=== PATIENT | female | born 1985 | race Caucasian/White ===

== ENCOUNTER 2017-01-19 11:01 | Outpatient (CLI) | payer OTHER | END 2017-01-19 23:59 | DX: Z00.00 Encounter for general adult medical examination without abnormal findings (principal); Z98.84 Bariatric surgery status ==

== ENCOUNTER 2017-04-16 13:24 | Outpatient (CLI) | payer OTHER ==
[2017-04-16 19:28] LABS: HCT - HEMATOCRIT 41.4 % (37.0-47.0); HGB - HEMOGLOBIN 13.6 g/dL (12.0-16.0); MEAN CORPUSCULAR HEMOGLOBIN 28.6 pg (27.0-31.0); MEAN CORPUSCULAR VOLUME 86.9 fL (81.0-99.0); MEAN PLATELET VOLUME 10.2 fL (7.9-10.8); RED CELL DISTRIBUTION WIDTH 14.9 % (12.0-15.0); WHITE BLOOD COUNT 7.6 x10^3/uL (4.8-10.8)
[2017-04-16 19:50] LABS: RED BLOOD COUNT 4.76 10^6/uL (4.20-5.40)
== END 2017-04-16 23:59 | disposition home or self-care (01) ==
LOC: LAB.WCP 13:24
PROVIDERS: ATTEND Dentist Oral and Maxillofacial Surgery
DX: D50.9 Iron deficiency anemia, unspecified (principal)
CPT/HCPCS: 36415

== ENCOUNTER 2019-10-05 10:27 | Emergency (ER) | payer OTHER ==
[2019-10-05] MEDS ORDERED: SODIUM CHLORIDE 0.9% 1,000 ML IV ONE (10:58)
[2019-10-05] MEDS ORDERED: METOCLOPRAMIDE 10 MG/2 ML VIAL IVP STA (10:58)
[2019-10-05] MEDS ORDERED: diphenhydrAMINE INJ 50 MG/ML VIAL IVP STA (10:59)
--- NOTE | 2019-10-05 11:01 | ED Physician Documentation ---
PD HPI HEADACHE - Stated complaint Stated Complaint: VOMITING/WEAKNESS - Chief complaint Chief Complaint: Neuro - History obtained from History obtained from: Patient - History of Present Illness Timing - onset: How many days ago (3) Timing - onset during: Rest Timing - duration: Days (3) Timing - details: Gradual onset Pain level max: 6 Severity Comments: moderate Worst headache ever?: No: Worst headache ever? Location: Front, Right Quality: Aching, Tightness. No: Thunderclap, Throbbing, Stabbing, Like head is exploding Associated symptoms: Nausea, Vomiting. No: Fever, Stiff neck, Weakness, Numbness, Syncope, Seizure, Eye pain, Vision changes Improved by: Dark room Worsened by: Light Contributing factors: No: Anticoagulated, Possible carbon monoxide, Hypertension, Recent illness, Trauma Similar symptoms before: Has not had sx before Recently seen: Not recently seen - Treatment prior to arrival Treatment prior to arrival: none - Additional information Additional information: Pt ran out of her seroquel 4 days ago and thinks that is contributing to her symptoms Review of Systems Ten Systems: 10 systems reviewed and negative Constitutional: denies: Fever Eyes: reports: Photophobia. denies: Loss of vision, Decreased vision Ears: reports: Reviewed and negative Nose: reports: Reviewed and negative Throat: reports: Reviewed and negative Cardiac: reports: Reviewed and negative Respiratory: reports: Reviewed and negative GI: reports: Abdominal Pain, Nausea, Vomiting : reports: Reviewed and negative Skin: reports: Reviewed and negative Neurologic: reports: Headache. denies: Generalized weakness, Focal weakness, Numbness, Difficulty speaking, Near syncope, Syncope, Seizure, Altered mental status, Head injury, LOC Psychiatric: reports: Anxiety Immunocompromised: reports: Reviewed and negative PD PAST MEDICAL HISTORY - Past Medical History Cardiovascular: None Respiratory: None GI: None : None HEENT: None Psych: Depression Musculoskeletal: None Derm: None - Past Surgical History General: Gastric surgery HEENT: Tonsil/Adenoidectomy - Present Medications Home Medications: Ambulatory Orders Medication Instructions Recorded Confirmed Bupropion HCl [Wellbutrin Xl] 1 tab ORAL DAILY 01/28/17 01/28/17 Lamotrigine 1 tab ORAL DAILY 01/28/17 01/28/17 Quetiapine Fumarate [Seroquel] 3 tab ORAL QPM 01/28/17 01/28/17 Zolpidem [Ambien] 1 tab ORAL DAILY PRN 01/28/17 01/28/17 Ondansetron Odt [Zofran Odt] 4 mg TL Q6H PRN #10 tablet 10/05/19 - Allergies Allergies/Adverse Reactions: Allergies Allergy/AdvReac Type Severity Reaction Status Date / Time No Known Drug Allergies Allergy Verified 10/05/19 10:40 - Social History Smoking Status: Never smoker PD ED PE NORMAL - Vitals Vital signs reviewed: Yes - General General: Alert and oriented X 3, No acute distress - HEENT HEENT: Atraumatic, PERRL, EOMI, Moist mucous membranes, Pharynx benign - Neck Neck: Supple, no meningeal sign (full painless ROM ), No JVD - Cardiac Cardiac: RRR, No murmur, No gallop, No rub - Respiratory Respiratory: No respiratory distress, Clear bilaterally - Abdomen Abdomen: Soft, Non tender, Non distended - Female Female : Deferred - Rectal Rectal: Deferred - Derm Derm: Normal color, Warm and dry, No rash - Extremities Extremities: No deformity, No tenderness to palpate, Normal ROM s pain, No edema, No calf tenderness / cord - Neuro Neuro: Alert and oriented X 3, No motor deficit, No sensory deficit Eye Opening: Spontaneous Motor: Obeys Commands Verbal: Oriented GCS Score: 15 - Psych Psych: Other (anxious, tearful) Results - Vitals Vitals: Vital Signs - 24 hr 10/05/19 10/05/19 10/05/19 10:37 11:29 11:58 Temperature 36.2 C L Heart Rate 102 H 82 81 Respiratory 18 15 18 Rate Blood Pressure 136/52 H 114/52 L 102/59 L O2 Saturation 100 100 100 Oxygen O2 Source Room air - Labs Labs: Laboratory Tests 10/05/19 10/05/19 11:20 11:20 WBC 10.3 RBC 5.13 Hgb 14.8 Hct 45.9 MCV 89.5 MCH 28.8 MCHC 32.2 RDW 12.7 Plt Count 297 MPV 11.4 H Neut # (Auto) 7.2 H Lymph # (Auto) 2.3 [place] # (Auto) 0.6 Eos # (Auto) 0.1 Baso # (Auto) 0.1 Absolute Nucleated RBC 0.00 Nucleated RBC % 0.0 Sodium 138 Potassium 3.7 Chloride 103 Carbon Dioxide 27 Anion Gap 8.0 BUN 6 Creatinine 0.8 Estimated GFR (MDRD) 81 L Glucose 98 Calcium 9.2 Total Bilirubin 0.6 AST 13 ALT 11 Alkaline Phosphatase 46 Total Protein 7.4 Albumin 4.6 Globulin 2.8 Albumin/Globulin Ratio 1.6 Lipase 25 PD MEDICAL DECISION MAKING - ED course Complexity details: reviewed results, re-evaluated patient, considered differential, d/w patient ED course: ddx - migraine headache, tension headache, medication withdrawal, anxiety, electrolyte abnormality, dehydration, ICH/ SAH, flu 34 y/o F with headache, nausea, vomiting since stopping her seroquel a few days ago - has a script for refill but hasn't been able to get to the pharmacy. Admittedly very stressed about her mom requiring detox and hasn't been caring for herself. She reports poor PO intake, vomiting, nausea, her headache is moderate, of gradual onset and similar to prior headaches. Her examination is normal, no neuro deficits, no nuchal rigidity. No visual symptoms, normal eye exam. She does appear anxious and tearful. I doubt SAH/ICH. This is likely due to anxiety and medication iwthdrawal. She was given a nalgesics for her RUEDA and nausea - reglan and benadryl and has complete relief of symptoms. She is stable for discharge. Return precautions given if worsening or new concerning symptoms. Departure - Departure Disposition: 01 Home, Self Care Clinical Impression: Headache Qualifiers: Headache type: unspecified Headache chronicity pattern: acute headache Intractability: not intractable Qualified Code(s): R51 - Headache Condition: Stable Record reviewed to determine appropriate education?: Yes Instructions: Headache Pain Follow-Up: Annel Hernandez PA-C [Primary Care Provider] - Within 1 week Prescriptions: Ondansetron Odt [Zofran Odt] 4 mg TL Q6H PRN #10 tablet PRN Reason: Nausea / Vomiting Comments: Your labs today were normal including your electrolytes, kidney function and blood counts. Resume your seroquel. You can take tylenol and ibuprofen as needed for headache and the prescribed ondansetron in case of vomiting. Return to the ED if worsening or new concerning symptoms develop Discharge Date/Time: 10/05/19 12:29
[2019-10-05 11:58] VITALS: BP 102/59
[2019-10-05 12:00] LABS: BASOPHILS # (AUTO) 0.1 10^3/uL (0.0-0.1); BASOPHILS % (AUTO) 0.7 %; EOSINOPHILS # (AUTO) 0.1 10^3/uL (0.0-0.7); EOSINOPHILS % (AUTO) 1.1 %; HGB - HEMOGLOBIN 14.8 g/dL (12.0-16.0); LYMPHOCYTES # (AUTO) 2.3 10^3/uL (1.5-3.5); LYMPHOCYTES % (AUTO) 22.3 %; MEAN CORPUSCULAR HEMOGLOBIN 28.8 pg (27.0-31.0); MEAN CORPUSCULAR HGB CONC 32.2 g/dL (32.0-36.0); MEAN CORPUSCULAR VOLUME 89.5 fL (81.0-99.0); MEAN PLATELET VOLUME 11.4 fL (7.9-10.8); MONOCYTES # (AUTO) 0.6 10^3/uL (0.0-1.0); MONOCYTES % (AUTO) 5.4 %; NEUTROPHILS # (AUTO) 7.2 10^3/uL (1.5-6.6); NEUTROPHILS % (AUTO) 70.2 %; PLT - PLATELET COUNT 297 10^3/uL (130-450); RED BLOOD COUNT 5.13 10^6/uL (4.20-5.40); RED CELL DISTRIBUTION WIDTH 12.7 % (12.0-15.0); WHITE BLOOD COUNT 10.3 x10^3/uL (4.8-10.8)
[2019-10-05 12:14] LABS: ALBUMIN 4.6 g/dL (3.2-5.5); ALBUMIN/GLOBULIN RATIO 1.6 (1.0-2.2); BILIRUBIN,TOTAL 0.6 mg/dL (0.2-1.0); CALCIUM 9.2 mg/dL (8.5-10.3); CREATININE 0.8 mg/dL (0.4-1.0); TOTAL PROTEIN 7.4 g/dL (6.7-8.2)
== END 2019-10-05 12:29 | disposition home or self-care (01) ==
LOC: ED 10:27
DX: R51 Headache (principal); R11.2 Nausea with vomiting, unspecified; F41.9 Anxiety disorder, unspecified
CPT/HCPCS: 36415; 80053; 83690; 85025; 96374; 96375; 99283; 99284; J1200; J2765

== ENCOUNTER 2020-11-13 13:05 | Emergency (ER) | payer OTHER ==
[2020-11-13] MEDS ORDERED: SODIUM CHLORIDE 0.9% 1,000 ML IV STA (13:41)
--- NOTE | 2020-11-13 13:53 | ED Physician Documentation ---
History of Present Illness - Stated complaint Stated Complaint: WEAK,DIZZY - Chief complaint Chief Complaint: General - History obtained from History obtained from: Patient - History of Present Illness Timing: How many days ago (3) - Additonal information Additional information: 35-year-old female with a history of iron deficient anemia has a 3 day history of loss of energy, dizziness on standing, headache, orthostatic palpatations and exertional dyspnea. She has had similar symptoms previously with Iron deficient anemia requiring transfusion. She works in the police department and has been at home for the past several days inside. She believes she drinks extra fluids at work and she does not think she has taken in as much fluid as usual. Review of Systems Constitutional: denies: Fever Eyes: denies: Decreased vision Ears: denies: Ear pain Nose: denies: Rhinorrhea / runny nose, Congestion Throat: denies: Sore throat Cardiac: reports: Palpitations. denies: Chest pain / pressure Respiratory: denies: Dyspnea, Cough GI: denies: Abdominal Pain, Nausea, Vomiting, Constipation, Diarrhea : denies: Dysuria, Frequency Skin: denies: Rash Neurologic: reports: Generalized weakness, Headache, Other (dizziness). denies: Focal weakness, Numbness, Head injury, LOC PD PAST MEDICAL HISTORY - Past Medical History Past Medical History: Yes Cardiovascular: None Respiratory: None GI: None : None HEENT: None Psych: Depression Musculoskeletal: None Derm: None - Past Surgical History General: Gastric surgery HEENT: Tonsil/Adenoidectomy - Present Medications Home Medications: Ambulatory Orders Medication Instructions Recorded Confirmed Bupropion HCl [Wellbutrin Xl] 1 tab ORAL DAILY 01/28/17 01/28/17 Lamotrigine 1 tab ORAL DAILY 01/28/17 01/28/17 Quetiapine Fumarate [Seroquel] 3 tab ORAL QPM 01/28/17 01/28/17 Zolpidem [Ambien] 1 tab ORAL DAILY PRN 01/28/17 01/28/17 Ondansetron Odt [Zofran Odt] 4 mg TL Q6H PRN #10 tablet 10/05/19 - Allergies Allergies/Adverse Reactions: Allergies Allergy/AdvReac Type Severity Reaction Status Date / Time No Known Drug Allergies Allergy Verified 11/13/20 13:13 - Social History Does the pt smoke?: No Smoking Status: Never smoker Does the pt drink ETOH?: Yes Does the pt have substance abuse?: No - Immunizations Immunizations are current?: Yes - POLST Patient has POLST: No PD ED PE NORMAL - Vitals Vital signs reviewed: Yes (normal) - General General: Alert and oriented X 3, No acute distress, Well developed/nourished - HEENT HEENT: Atraumatic, PERRL, EOMI - Neck Neck: Supple, no meningeal sign, No bony TTP - Cardiac Cardiac: RRR, No murmur - Respiratory Respiratory: No respiratory distress, Clear bilaterally - Abdomen Abdomen: Normal bowel sounds, Soft, Non tender, Non distended, No organomegaly - Back Back: No CVA TTP, No spinal TTP - Derm Derm: Normal color, Warm and dry, No rash - Extremities Extremities: No deformity, No edema - Neuro Neuro: Alert and oriented X 3, internet designer 2-12 intact, No motor deficit, No sensory deficit, Normal speech Eye Opening: Spontaneous Motor: Obeys Commands Verbal: Oriented GCS Score: 15 - Psych Psych: Normal mood, Normal affect Results - Vitals Vitals: Vital Signs - 24 hr 11/13/20 11/13/20 13:13 15:57 Temperature 36.1 C L 36.8 C Heart Rate 66 56 L Respiratory 18 18 Rate Blood Pressure 90/71 106/59 L O2 Saturation 100 100 Oxygen O2 Source Room air - Labs Labs: Laboratory Tests 11/13/20 11/13/20 11/13/20 13:50 13:50 14:22 WBC 8.7 RBC 4.90 Hgb 14.4 Hct 43.9 MCV 89.6 MCH 29.4 MCHC 32.8 RDW 12.5 Plt Count 258 MPV 11.6 H Neut # (Auto) 5.0 Lymph # (Auto) 2.7 [place] # (Auto) 0.7 Eos # (Auto) 0.2 Baso # (Auto) 0.1 Absolute Nucleated RBC 0.00 Nucleated RBC % 0.0 Sodium 136 Potassium 3.9 Chloride 105 Carbon Dioxide 24 Anion Gap 7.0 BUN 10 Creatinine 0.9 Estimated GFR (MDRD) 70 L Glucose 75 Calcium 9.3 Total Bilirubin 0.4 AST 12 ALT 11 Alkaline Phosphatase 48 Total Protein 6.7 Albumin 4.2 Globulin 2.5 Albumin/Globulin Ratio 1.7 Lipase 28 Urine Color YELLOW Urine Clarity CLEAR Urine pH 6.0 Ur Specific [place] 1.025 Urine Protein NEGATIVE Urine Glucose (UA) NEGATIVE Urine Ketones TRACE Urine Occult Blood NEGATIVE Urine Nitrite NEGATIVE Urine Bilirubin NEGATIVE Urine Urobilinogen 0.2 (NORMAL) Ur Leukocyte Esterase NEGATIVE Ur Microscopic Review NOT INDICATED Urine Culture Comments NOT INDICATED Urine HCG, Qual NEGATIVE Procedures - IVC sono (time) 13 Bedside IVC sono: IVC measures (cm) (0.94), IVC collapsed c insp (cm) (complete), Dehydration (est 1-2 liter deficit) PD MEDICAL DECISION MAKING - ED course Complexity details: reviewed results, re-evaluated patient, considered differential, d/w patient ED course: 35-year-old female with fatigue and dizziness is dehydrated on interrogation the inferior vena cava and she is administered intravenous saline with improvement. Departure - Departure Disposition: 01 Home, Self Care Clinical Impression: Dehydration Condition: Stable Instructions: ED Dehydration Follow-Up: Annel Hernandez PA-C [Primary Care Provider] - Discharge Date/Time: 11/13/20 15:59
[2020-11-13 14:02] LABS: BASOPHILS # (AUTO) 0.1 10^3/uL (0.0-0.1); EOSINOPHILS # (AUTO) 0.2 10^3/uL (0.0-0.7); EOSINOPHILS % (AUTO) 1.8 %; HGB - HEMOGLOBIN 14.4 g/dL (12.0-16.0); LYMPHOCYTES # (AUTO) 2.7 10^3/uL (1.5-3.5); MEAN CORPUSCULAR HEMOGLOBIN 29.4 pg (27.0-31.0); MEAN CORPUSCULAR HGB CONC 32.8 g/dL (32.0-36.0); MEAN CORPUSCULAR VOLUME 89.6 fL (81.0-99.0); MEAN PLATELET VOLUME 11.6 fL (7.9-10.8); MONOCYTES # (AUTO) 0.7 10^3/uL (0.0-1.0); PLT - PLATELET COUNT 258 10^3/uL (130-450); RED CELL DISTRIBUTION WIDTH 12.5 % (12.0-15.0); WHITE BLOOD COUNT 8.7 x10^3/uL (4.8-10.8)
[2020-11-13 14:16] LABS: ALBUMIN 4.2 g/dL (3.2-5.5); ALBUMIN/GLOBULIN RATIO 1.7 (1.0-2.2); BILIRUBIN,TOTAL 0.4 mg/dL (0.2-1.0); CALCIUM 9.3 mg/dL (8.5-10.3); CREATININE 0.9 mg/dL (0.4-1.0); TOTAL PROTEIN 6.7 g/dL (6.7-8.2)
[2020-11-13 14:26] LABS: BILIRUBIN,URINE NEGATIVE (NEGATIVE); GLUCOSE, URINE (UA) NEGATIVE (NEGATIVE); KETONES,URINE (UA) TRACE mg/dL (NEGATIVE); LEUKOCYTE ESTERASE, URINE NEGATIVE (NEGATIVE); NITRITE,URINE NEGATIVE (NEGATIVE); OCCULT BLOOD,URINE NEGATIVE (NEGATIVE); PROTEIN,URINE NEGATIVE (NEGATIVE); UROBILINOGEN,URINE 0.2 (NORMAL) E.U./dL (NORMAL)
[2020-11-13 14:27] LABS: CLARITY,URINE CLEAR (CLEAR)
[2020-11-13 14:28] LABS: HCG UR QUAL NEGATIVE
[2020-11-13 15:57] VITALS: BP 106/59
== END 2020-11-13 15:59 | disposition home or self-care (01) ==
LOC: ED 13:05
DX: E86.0 Dehydration (principal)
CPT/HCPCS: 36415; 80053; 81001; 81003; 81025; 83690; 85025; 87086; 96360; 96361; 99283

== ENCOUNTER 2021-05-25 15:58 | Emergency (ER) | payer OTHER ==
[2021-05-25 16:09] VITALS: BP 120/74
[2021-05-25 16:40] LABS: BILIRUBIN,URINE NEGATIVE (NEGATIVE); GLUCOSE, URINE (UA) NEGATIVE (NEGATIVE); KETONES,URINE (UA) NEGATIVE (NEGATIVE); LEUKOCYTE ESTERASE, URINE TRACE (NEGATIVE); NITRITE,URINE NEGATIVE (NEGATIVE); OCCULT BLOOD,URINE TRACE-INTA (NEGATIVE); PH,URINE 5.5 PH (5.0-7.5); PROTEIN,URINE NEGATIVE (NEGATIVE); UROBILINOGEN,URINE 0.2 (NORMAL) E.U./dL (NORMAL)
[2021-05-25 16:42] LABS: CLARITY,URINE CLEAR (CLEAR); HCG UR QUAL NEGATIVE
[2021-05-25 16:51] LABS: SQUAMOUS EPITHELIAL CELL,UR FEW Squamous (<= Few); WBC CLUMPS,URINE PRESENT; WBC,URINE >25 /HPF (0-5)
[2021-05-25 16:52] LABS: BACTERIA,URINE Few /HPF (None Seen)
--- NOTE | 2021-05-25 17:11 | ED Physician Documentation ---
History of Present Illness - Stated complaint Stated Complaint: FEMALE - Chief complaint Chief Complaint: UTI - History obtained from History obtained from: Patient - Additonal information Additional information: 35-year-old woman presents with suprapubic abdominal pain radiating to the bilateral back, constant, gradual in onset, worse with urination, associated with increased frequency, worsening today. Patient has history of frequent UTI. Past medical history of depression and anxiety.denies fever, nausea Review of Systems Constitutional: denies: Fever, Chills, Myalgias GI: reports: Abdominal Pain. denies: Nausea, Vomiting : reports: Dysuria, Frequency. denies: Hematuria Musculoskeletal: reports: Back pain PD PAST MEDICAL HISTORY - Past Medical History Cardiovascular: None Respiratory: None GI: None : None HEENT: None Psych: Depression Musculoskeletal: None Derm: None - Past Surgical History General: Gastric surgery HEENT: Tonsil/Adenoidectomy - Present Medications Home Medications: Ambulatory Orders Medication Instructions Recorded Confirmed Bupropion HCl [Wellbutrin Xl] 1 tab ORAL DAILY 01/28/17 01/28/17 Lamotrigine 1 tab ORAL DAILY 01/28/17 01/28/17 Quetiapine Fumarate [Seroquel] 3 tab ORAL QPM 01/28/17 01/28/17 Zolpidem [Ambien] 1 tab ORAL DAILY PRN 01/28/17 01/28/17 Ondansetron Odt [Zofran Odt] 4 mg TL Q6H PRN #10 tablet 10/05/19 cephALEXin [Keflex] 500 mg PO BID #28 tab 05/25/21 - Allergies Allergies/Adverse Reactions: Allergies Allergy/AdvReac Type Severity Reaction Status Date / Time No Known Drug Allergies Allergy Verified 05/25/21 16:09 - Social History Does the pt smoke?: No Smoking Status: Never smoker Does the pt drink ETOH?: Yes Does the pt have substance abuse?: No - Immunizations Immunizations are current?: Yes - POLST Patient has POLST: No PD ED PE NORMAL - Vitals Vital signs reviewed: Yes - General General: Alert and oriented X 3, No acute distress, Well developed/nourished - HEENT HEENT: Atraumatic, PERRL, EOMI - Neck Neck: Supple, no meningeal sign - Cardiac Cardiac: RRR - Respiratory Respiratory: No respiratory distress, Clear bilaterally - Abdomen Abdomen: Non tender, Non distended, Other (Discomfort to suprapubic palpation) - Back Back: No CVA TTP, Other (Bilateral CVA discomfort with palpation) - Derm Derm: Normal color - Extremities Extremities: No deformity - Neuro Neuro: Alert and oriented X 3 - Psych Psych: Normal mood, Normal affect Results - Vitals Vitals: Vital Signs - 24 hr 05/25/21 16:06 Temperature 36.7 C Heart Rate 90 Respiratory 16 Rate Blood Pressure 120/74 O2 Saturation 99 Oxygen O2 Source Room air - Labs Labs: Laboratory Tests 05/25/21 14:10 Urine Color YELLOW Urine Clarity CLEAR Urine pH 5.5 Ur Specific [place] >=1.030 H Urine Protein NEGATIVE Urine Glucose (UA) NEGATIVE Urine Ketones NEGATIVE Urine Occult Blood TRACE-INTA Urine Nitrite NEGATIVE Urine Bilirubin NEGATIVE Urine Urobilinogen 0.2 (NORMAL) Ur Leukocyte Esterase TRACE H Urine RBC 6-10 H Urine WBC >25 H Urine WBC Clumps PRESENT Ur Squamous Epith Cells FEW Squamous Urine Bacteria Few Ur Microscopic Review INDICATED Urine Culture Comments INDICATED Urine HCG, Qual NEGATIVE PD MEDICAL DECISION MAKING - ED course ED course: 35-year-old woman presents with uncomplicated UTI. Will treat with antibiotics. Return precautions given. Follow-up with primary doctor Impression 1.UTI Departure - Departure Disposition: 01 Home, Self Care Condition: Good Instructions: UTI Prescriptions: cephALEXin [Keflex] 500 mg PO BID #28 tab Comments: You are seen in the emergency department for urinary tract infection. Return to the emergency department if you have any new or worsening symptoms or other concerns. Stay well-hydrated and take your antibiotics as prescribed.
[2021-05-25] MEDS ORDERED: cephALEXin 250 MG CAPSULE PO STA (17:19)
== END 2021-05-25 17:50 | disposition home or self-care (01) ==
LOC: ED 15:58
DX: N39.0 Urinary tract infection, site not specified (principal)
CPT/HCPCS: 81001; 81025; 87086; 99283; 99284; A9270; 81003

== ENCOUNTER 2021-07-04 11:31 | Emergency (ER) | payer OTHER ==
[2021-07-04 11:44] VITALS: BP 131/59
[2021-07-04 12:01] LABS: RAPID STREP SCREEN Negative (Negative)
--- NOTE | 2021-07-04 12:24 | ED Physician Documentation ---
PD HPI URI - Stated complaint Stated Complaint: SORE THROAT - Chief complaint Chief Complaint: Heent - History obtained from History obtained from: Patient - Additional information Additional information: 35-year-old woman has been sick for 2 days of body aches, dry cough, sore throat. Very mild runny nose. No measured fevers but she has had some chills. She is fully immunized against Covid having had her second Pfizer shot in November. She was exposed at work though. Review of Systems Constitutional: reports: Chills, Myalgias. denies: Fever Nose: reports: Rhinorrhea / runny nose Throat: reports: Sore throat Respiratory: reports: Cough. denies: Dyspnea PD PAST MEDICAL HISTORY - Past Medical History Cardiovascular: None Respiratory: None GI: None : None HEENT: None Psych: Depression Musculoskeletal: None Derm: None - Past Surgical History General: Gastric surgery HEENT: Tonsil/Adenoidectomy - Present Medications Home Medications: Ambulatory Orders Medication Instructions Recorded Confirmed Bupropion HCl [Wellbutrin Xl] 1 tab ORAL DAILY 01/28/17 01/28/17 Lamotrigine 1 tab ORAL DAILY 01/28/17 01/28/17 Quetiapine Fumarate [Seroquel] 3 tab ORAL QPM 01/28/17 01/28/17 Zolpidem [Ambien] 1 tab ORAL DAILY PRN 01/28/17 01/28/17 Ondansetron Odt [Zofran Odt] 4 mg TL Q6H PRN #10 tablet 10/05/19 cephALEXin [Keflex] 500 mg PO BID #28 tab 05/25/21 - Allergies Allergies/Adverse Reactions: Allergies Allergy/AdvReac Type Severity Reaction Status Date / Time No Known Drug Allergies Allergy Verified 07/04/21 11:43 - Social History Does the pt smoke?: No Smoking Status: Never smoker Does the pt drink ETOH?: Yes Does the pt have substance abuse?: No - Immunizations Immunizations are current?: Yes - POLST Patient has POLST: No PD ED PE NORMAL - Vitals Vital signs reviewed: Yes - General General: Alert and oriented X 3, No acute distress - HEENT HEENT: PERRL, EOMI, Ears normal, Moist mucous membranes, Pharynx benign - Neck Neck: Supple, no meningeal sign, No bony TTP - Cardiac Cardiac: RRR, No murmur - Respiratory Respiratory: No respiratory distress, Clear bilaterally - Abdomen Abdomen: Soft, Non tender - Back Back: No CVA TTP, No spinal TTP - Derm Derm: Normal color, Warm and dry - Extremities Extremities: No edema, No calf tenderness / cord - Neuro Neuro: Alert and oriented X 3, Normal speech Results - Vitals Vitals: Vital Signs - 24 hr 07/04/21 11:40 Temperature 36.4 C L Heart Rate 102 H Respiratory 16 Rate Blood Pressure 131/59 H O2 Saturation 98 Oxygen O2 Source Room air - Labs Labs: Laboratory Tests 07/04/21 11:49 Group A Strep Rapid Negative PD MEDICAL DECISION MAKING - ED course ED course: 35-year-old woman with nonspecific viral syndrome, the progression of symptoms suggest against coronavirus since the cough was prominent at the onset, strep test is negative. Discussed need for quarantine until coronavirus test negative though. Departure - Departure Disposition: 01 Home, Self Care Clinical Impression: Viral syndrome Condition: Good Record reviewed to determine appropriate education?: Yes Instructions: ED Viral Syndrome Comments: Tylenol or ibuprofen as needed for aches and pains and sore throat. Return for new or worsening symptoms. You have a Covid test pending. You need to self quarantine until the result is done and negative. Do not leave your house. Do not get near anybody. The results should be done in 48 to 72 hours. We will call with a positive result, the fastest way to get a negative result for confirmation though is to go to the hospital website at [email or web address], click on the my People and Pages tab and sign up for the patient portal. If any friends or family get sick and would like to have a Covid test done, but do not have signs or symptoms that would necessitate being hospitalized, we encourage testing through our coronavirus swabbing station, call [phone] to schedule an appointment. Forms: Activity restrictions
== END 2021-07-04 12:29 | disposition home or self-care (01) ==
LOC: ED 11:31
DX: B34.9 Viral infection, unspecified (principal); Z20.822 Contact with and (suspected) exposure to COVID-19
CPT/HCPCS: 87070; 87430; 99283

== ENCOUNTER 2021-10-08 08:00 | Outpatient (CLI) | payer OTHER ==
[2021-10-10 11:31] LABS: HSV 2 IGG TYPE SPECIFIC AB <0.90 index
== END 2021-10-08 23:59 | disposition home or self-care (01) ==
LOC: LAB.N 08:00
PROVIDERS: ATTEND Physician Assistant
DX: L98.9 Disorder of the skin and subcutaneous tissue, unspecified (principal)
CPT/HCPCS: 36415; 81599; 86695; 86696

== ENCOUNTER 2022-09-13 19:27 | Outpatient (CLI) | payer OTHER | END 2022-09-13 19:28 | disposition critical access hospital (66) | LOC: EMS 19:27 | DX: T42.6X2A Poisoning by other antiepileptic and sedative-hypnotic drugs, intentional self-harm, initial encounter (principal); R47.81 Slurred speech; R26.81 Unsteadiness on feet | CPT/HCPCS: A0425; A0427 ==

== ENCOUNTER 2022-09-13 19:47 | Emergency (ER) | payer OTHER ==
--- OUTSIDE RECORDS SUMMARY | 2022-09-13 20:00 | EXTERNAL MEDICAL SUMMARY RPT | Continuity of Care Document ---
:1985 Author Organization [facility] Address [address] [place] [address] Phone Care Team Providers Name Role Phone Annel Hernandez Unavailable Unavailable Allergies No information. Encounters No information. Functional Status No information. Immunizations No information. Medications date description facility [id number] Lamotrigine [facility] [phone] Quetiapine [facility] [phone] [facility] [phone] [facility] [phone] Bupropion Hcl [facility] Problems No information. Procedures No information. Results/Labs No information. Social History date description facility [phone] Never smoked tobacco (finding) [facility] Vital Signs No information.
[2022-09-13 20:10] LABS: BASOPHILS # (AUTO) 0.1 10^3/uL (0.0-0.1); BASOPHILS % (AUTO) 0.9 %; EOSINOPHILS # (AUTO) 0.2 10^3/uL (0.0-0.7); EOSINOPHILS % (AUTO) 1.3 %; HCT - HEMATOCRIT 40.8 % (37.0-47.0); HGB - HEMOGLOBIN 13.1 g/dL (12.0-16.0); LYMPHOCYTES # (AUTO) 3.3 10^3/uL (1.5-3.5); LYMPHOCYTES % (AUTO) 26.7 %; MEAN CORPUSCULAR HEMOGLOBIN 26.2 pg (27.0-31.0); MEAN CORPUSCULAR HGB CONC 32.1 g/dL (32.0-36.0); MEAN CORPUSCULAR VOLUME 81.6 fL (81.0-99.0); MEAN PLATELET VOLUME 10.6 fL (7.9-10.8); MONOCYTES # (AUTO) 0.9 10^3/uL (0.0-1.0); MONOCYTES % (AUTO) 7.3 %; NEUTROPHILS % (AUTO) 63.6 %; PLT - PLATELET COUNT 360 10^3/uL (130-450); RED CELL DISTRIBUTION WIDTH 13.4 % (12.0-15.0); WHITE BLOOD COUNT 12.5 x10^3/uL (4.8-10.8)
--- NOTE | 2022-09-13 20:12 | ED Physician Documentation ---
PD HPI OVERDOSE - Stated complaint Stated Complaint: OVERDOSE - Chief complaint Chief Complaint: MHE - History obtained from History obtained from: Patient, Family (spouse) - History of Present Illness Timing - onset: Today Subtance(s) ingested: Single Associated symptoms: Altered mental status Contributing factors: Other (unclear intent on presentation (see narrative below)) Similar symptoms before: Has not had sx before Recently seen: Not recently seen - Additional information Additional information: RICARDO, called 911 due to patient taking too many of her ambien. Patient is drowsy on arrival but awakens to voice. She tells me she took approximately 10-12 ambien over the course of the day, although intent is unclear due to her drowsiness and falling asleep during my HPI Review of Systems Unable to obtain: Other (ROS is obtained later in ED stay when she is sufficiently awake and alert) Cardiac: reports: Reviewed and negative Respiratory: reports: Reviewed and negative GI: reports: Reviewed and negative Psychiatric: reports: Anxiety, Insomnia. denies: Depressed, Suicidal PD PAST MEDICAL HISTORY - Past Medical History Cardiovascular: None Respiratory: None GI: None : None HEENT: None Psych: Depression Musculoskeletal: None Derm: None - Past Surgical History Past Surgical History: Yes General: Gastric surgery HEENT: Tonsil/Adenoidectomy - Present Medications Home Medications: Ambulatory Orders Medication Instructions Recorded Confirmed Bupropion HCl [Wellbutrin Xl] 1 tab ORAL DAILY 01/28/17 01/28/17 Lamotrigine 1 tab ORAL DAILY 01/28/17 01/28/17 Quetiapine Fumarate [Seroquel] 3 tab ORAL QPM 01/28/17 01/28/17 Zolpidem [Ambien] 1 tab ORAL DAILY PRN 01/28/17 01/28/17 Ondansetron Odt [Zofran Odt] 4 mg TL Q6H PRN #10 tablet 10/05/19 cephALEXin [Keflex] 500 mg PO BID #28 tab 05/25/21 - Allergies Allergies/Adverse Reactions: Allergies Allergy/AdvReac Type Severity Reaction Status Date / Time No Known Drug Allergies Allergy Verified 09/13/22 20:15 - Social History Does the pt smoke?: No Smoking Status: Never smoker Does the pt drink ETOH?: Yes Does the pt have substance abuse?: No - Immunizations Immunizations are current?: Yes - POLST Patient has POLST: No PD ED PE NORMAL - Vitals Vital signs reviewed: Yes - General General: No acute distress, Well developed/nourished, Other (drowsy, awakens to voice, falls asleep at times during H+P, mildly slurred speech. 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, Other (mildly slurred speech) Eye Opening: To Voice Motor: Obeys Commands Verbal: Oriented GCS Score: 14 PD ED PE EXPANDED - Cardiac Cardiac: Tachy, Regular Rhythm Results - Vitals Vitals: Oxygen O2 Source Room air - EKG (time done) No standard instances Rate: Rate (enter#) (108) Rhythm: NSR [place]: LAD (borderline LAD) Intervals: Normal LA QRS: Normal Ischemia: Normal ST segments - Labs Labs: Laboratory Tests 09/13/22 09/13/22 09/13/22 20:03 20:03 20:03 WBC 12.5 H RBC 5.00 Hgb 13.1 Hct 40.8 MCV 81.6 MCH 26.2 L MCHC 32.1 RDW 13.4 Plt Count 360 MPV 10.6 Neut # (Auto) 8.0 H Lymph # (Auto) 3.3 [place] # (Auto) 0.9 Eos # (Auto) 0.2 Baso # (Auto) 0.1 Absolute Nucleated RBC 0.00 Nucleated RBC % 0.0 Sodium 136 Potassium 3.6 Chloride 104 Carbon Dioxide 22 Anion Gap 10.0 BUN 8 Creatinine 0.7 Estimated GFR (MDRD) 93 Glucose 111 H Calcium 9.0 Total Bilirubin 0.6 AST 38 ALT 50 Alkaline Phosphatase 63 Total Protein 6.7 Albumin 3.9 Globulin 2.8 Albumin/Globulin Ratio 1.4 Lipase 26 TSH 4.07 Urine Color Urine Clarity Urine pH Ur Specific [place] Urine Protein Urine Glucose (UA) Urine Ketones Urine Occult Blood Urine Nitrite Urine Bilirubin Urine Urobilinogen Ur Leukocyte Esterase Ur Microscopic Review Urine Culture Comments Urine HCG, Qual Salicylates < 6.0 Urine Opiates Screen Ur Oxycodone Screen Urine Methadone Screen Ur Propoxyphene Screen Acetaminophen < 10 L Ur Barbiturates Screen Ur Tricyclics Screen Ur Phencyclidine Scrn Ur Amphetamine Screen U Methamphetamines Scrn U Benzodiazepines Scrn Urine Cocaine Screen U Cannabinoids Screen Ethyl Alcohol < 5.0 SARS-CoV-2 (PCR) 09/13/22 09/13/22 20:19 21:07 WBC RBC Hgb Hct MCV MCH MCHC RDW Plt Count MPV Neut # (Auto) Lymph # (Auto) [place] # (Auto) Eos # (Auto) Baso # (Auto) Absolute Nucleated RBC Nucleated RBC % Sodium Potassium Chloride Carbon Dioxide Anion Gap BUN Creatinine Estimated GFR (MDRD) Glucose Calcium Total Bilirubin AST ALT Alkaline Phosphatase Total Protein Albumin Globulin Albumin/Globulin Ratio Lipase TSH Urine Color LT. YELLOW Urine Clarity CLEAR Urine pH 6.0 Ur Specific [place] <=1.005 Urine Protein NEGATIVE Urine Glucose (UA) NEGATIVE Urine Ketones NEGATIVE Urine Occult Blood NEGATIVE Urine Nitrite NEGATIVE Urine Bilirubin NEGATIVE Urine Urobilinogen 0.2 (NORMAL) Ur Leukocyte Esterase NEGATIVE Ur Microscopic Review NOT INDICATED Urine Culture Comments NOT INDICATED Urine HCG, Qual NEGATIVE Salicylates Urine Opiates Screen NEGATIVE Ur Oxycodone Screen NEGATIVE Urine Methadone Screen NEGATIVE Ur Propoxyphene Screen NEGATIVE Acetaminophen Ur Barbiturates Screen NEGATIVE Ur Tricyclics Screen POSITIVE H Ur Phencyclidine Scrn NEGATIVE Ur Amphetamine Screen NEGATIVE U Methamphetamines Scrn NEGATIVE U Benzodiazepines Scrn NEGATIVE Urine Cocaine Screen NEGATIVE U Cannabinoids Screen NEGATIVE Ethyl Alcohol SARS-CoV-2 (PCR) NOT DETECTED PD MEDICAL DECISION MAKING - ED course Complexity details: reviewed results, re-evaluated patient, considered differential, d/w patient, d/w family ED course: patient is observed in ED for over 4.5 hours. She is drowsy early in stay, but becomes more awake and alert later. arrives and I reevaluated her after her tests were resulted. She has no concerning findings on ED MHE w/u (UDS positive for tricyclics noted; she takes quetiapine which can cause false positive TCA on UDS). Patient admits to taking more ambien over the course of the day today , but denies any intent of self-harm. She says she was having increasing difficulty sleeping and took one or more doses of the ambien a few times over the course of the day starting in the early AM hours. Patient's says patient had once overdosed on this medication in the past, but that she was unaware she took more than the recommended dose due to the effect of the medication. He indicates that he was under the impression that she is no longer being prescribed this medication, and that when he found her to be unusually drowsy this evening, he found a prescription bottle for ambien that was just filled yesterday for patient. He counted the pills in the bottle and determined twelve of 30 tablets were missing; he says he discarded of the remaining 18 tablets in the toilet. He says he has not had any impression nor suspicion of that his is having any suicidal thoughts or intent. Both patient and her are comfortable with d/c home. Departure - Departure Disposition: 01 Home, Self Care Clinical Impression: Overdose Qualifiers: Encounter type: initial encounter Injury intent: accidental or unintentional Qualified Code(s): T50.901A - Poisoning by unspecified drugs, medicaments and biological substances, accidental (unintentional), initial encounter Condition: Good Instructions: ED Overdose Intentional Discharge Date/Time: 09/14/22 00:26
[2022-09-13 20:25] LABS: ACETAMINOPHEN < 10 ug/mL (10-30); ALBUMIN 3.9 g/dL (3.2-5.5); ALBUMIN/GLOBULIN RATIO 1.4 (1.0-2.2); ALKALINE PHOSPHATASE 63 IU/L (42-121); ALT ALANINE AMINOTRANSFERASE 50 IU/L (10-60); AST ASPARTATE AMINOTRANSFERASE 38 IU/L (10-42); BILIRUBIN,TOTAL 0.6 mg/dL (0.2-1.0); BUN - BLOOD UREA NITROGEN 8 mg/dL (6-20); CARBON DIOXIDE - CO2 22 mmol/L (21-32); CHLORIDE 104 mmol/L (101-111); CREATININE 0.7 mg/dL (0.4-1.0); ETOH - ETHANOL < 5.0 mg/dL; GFR - MDRD 93 (>89); GLUCOSE 111 mg/dL (70-100); LIPASE 26 U/L (22-51); POTASSIUM 3.6 mmol/L (3.5-5.0); SALICYLATE < 6.0 mg/dL; SODIUM 136 mmol/L (135-145); TOTAL PROTEIN 6.7 g/dL (6.7-8.2)
[2022-09-13 20:32] LABS: MUDS CUTOFF CONCENTRATIONS CUTOFF CONC BELOW:
[2022-09-13 20:34] LABS: BILIRUBIN,URINE NEGATIVE (NEGATIVE); GLUCOSE, URINE (UA) NEGATIVE (NEGATIVE); KETONES,URINE (UA) NEGATIVE (NEGATIVE); LEUKOCYTE ESTERASE, URINE NEGATIVE (NEGATIVE); NITRITE,URINE NEGATIVE (NEGATIVE); OCCULT BLOOD,URINE NEGATIVE (NEGATIVE); PROTEIN,URINE NEGATIVE (NEGATIVE); UROBILINOGEN,URINE 0.2 (NORMAL) E.U./dL (NORMAL)
[2022-09-13 20:36] LABS: CLARITY,URINE CLEAR (CLEAR); HCG UR QUAL NEGATIVE
[2022-09-13 20:44] LABS: AMPHETAMINE SCREEN,URINE NEGATIVE (NEGATIVE); BARBITURATE SCREEN,UR NEGATIVE (NEGATIVE); BENZODIAZEPINES SCREEN, URINE NEGATIVE (NEGATIVE); COCAINE SCREEN URINE NEGATIVE (NEGATIVE); METHADONE SCREEN, URINE NEGATIVE (NEGATIVE); METHAMPHETAMINES SCREEN, URINE NEGATIVE (NEGATIVE); OPIATE SCREEN, URINE NEGATIVE (NEGATIVE); OXYCODONE SCREEN, URINE NEGATIVE (NEGATIVE); PROPOXYPHENE SCREEN, URINE NEGATIVE (NEGATIVE); THC CANNABINOID SCREEN, URINE NEGATIVE (NEGATIVE); TRICYCLIC ANTIDEPRESSANT,URINE POSITIVE (NEGATIVE)
[2022-09-13] MEDS ORDERED: SODIUM CHLORIDE 0.9% 1,000 ML IV STA (20:48)
[2022-09-13] MEDS ORDERED: ONDANSETRON 4 MG/2 ML VIAL IVP STA ×2 (20:48→21:46)
[2022-09-14 00:26] VITALS: BP 115/86
== END 2022-09-14 00:26 | disposition home or self-care (01) ==
LOC: EDUNIT# → ED 19:47
DX: T50.901A Poisoning by unspecified drugs, medicaments and biological substances, accidental (unintentional), initial encounter (principal); Z20.822 Contact with and (suspected) exposure to COVID-19
CPT/HCPCS: 36415; 80053; 80306; 80307; 80320; 80329; 81001; 81003; 81025; 83690; 84443; 85025; 87086; 93005; 96361; 96374; 96376; 99283

== ENCOUNTER 2023-04-21 19:22 | Outpatient (CLI) | payer OTHER | END 2023-04-21 19:23 | disposition critical access hospital (66) | LOC: EMS 19:22 | DX: R55 Syncope and collapse (principal) | CPT/HCPCS: A0425; A0427 ==

== ENCOUNTER 2023-04-21 19:41 | Emergency (ER) | payer OTHER ==
--- NOTE | 2023-04-21 19:52 | ED Physician Documentation ---
History of Present Illness - Stated complaint Stated Complaint: SYNCOPE - History obtained from History obtained from: Patient, EMS - Additonal information Additional information: 37-year-old woman on quetiapine, Wellbutrin. Also Lamictal. No recent medication changes. For the last 3 days she has had severe dry mouth and today developed progressive weakness and dizziness. She felt very dizzy for about 3 minutes and then passed out. There was a report of potentially some seizure activity but no report of postictal period. She feels okay now other than the dry mouth. There were no clear injuries. No chest pain or trouble breathing. No dark or tarry stools. She does have a history of anemia and required a transfusion about 6 years ago. She had a remote gastric bypass. PD PAST MEDICAL HISTORY - Past Medical History Cardiovascular: None Respiratory: None GI: None : None HEENT: None Psych: Depression Musculoskeletal: None Derm: None - Past Surgical History Past Surgical History: Yes General: Gastric surgery HEENT: Tonsil/Adenoidectomy - Present Medications Home Medications: Ambulatory Orders Medication Instructions Recorded Confirmed Lamotrigine 1 tab ORAL DAILY 01/28/17 01/28/17 Quetiapine Fumarate [Seroquel] 3 tab ORAL QPM 01/28/17 01/28/17 buPROPion HCL [Wellbutrin Xl] 1 tab ORAL DAILY 01/28/17 01/28/17 - Allergies Allergies/Adverse Reactions: Allergies Allergy/AdvReac Type Severity Reaction Status Date / Time No Known Drug Allergies Allergy Verified 04/21/23 19:49 - Social History Does the pt smoke?: No Smoking Status: Never smoker Does the pt drink ETOH?: Yes Does the pt have substance abuse?: No - Immunizations Immunizations are current?: Yes - POLST Patient has POLST: No PD ED PE NORMAL - Vitals Vital signs reviewed: Yes - General General: Alert and oriented X 3, No acute distress - HEENT HEENT: Other (Dry mucous membranes) - Neck Neck: Supple, no meningeal sign, No bony TTP - Cardiac Cardiac: RRR, No murmur - Respiratory Respiratory: No respiratory distress, Clear bilaterally - Abdomen Abdomen: Non tender - Neuro Neuro: Alert and oriented X 3, No motor deficit, No sensory deficit, Normal speech Eye Opening: Spontaneous Motor: Obeys Commands Verbal: Oriented GCS Score: 15 Results - Vitals Vitals: Vital Signs - 24 hr 04/21/23 04/21/23 04/21/23 19:49 19:56 20:34 Temperature 36.6 C Heart Rate 68 50 L Respiratory 14 17 20 Rate Blood Pressure 104/62 109/69 O2 Saturation 98 97 04/21/23 04/21/23 21:43 21:52 Temperature Heart Rate 64 Respiratory 20 20 Rate Blood Pressure 119/74 O2 Saturation 100 Oxygen O2 Source Room air - EKG (time done) 1947 EKG releavant findings:: EKG personally interpreted by author of this note. Relevant findings are: Rate: Rate (enter#) (56) Rhythm: NSR [place]: Normal Intervals: Normal SD. No: Prolonged QT Ischemia: Non specific changes. No: ST elevation c/w ischemia, ST depression - Labs Labs: Laboratory Tests 04/21/23 04/21/23 04/21/23 20:38 20:38 21:44 WBC 11.1 H RBC 4.48 Hgb 11.2 L Hct 35.8 L MCV 79.9 L MCH 25.0 L MCHC 31.3 L RDW 14.2 Plt Count 281 MPV 11.1 H Neut # (Auto) 7.5 H Lymph # (Auto) 2.6 [place] # (Auto) 0.8 Eos # (Auto) 0.1 Baso # (Auto) 0.1 Absolute Nucleated RBC 0.00 Nucleated RBC % 0.0 Sodium 138 Potassium 4.0 Chloride 106 Carbon Dioxide 26 Anion Gap 6.0 BUN 11 Creatinine 1.0 Estimated GFR (MDRD) 62 L Glucose 103 H Calcium 8.4 L Urine Color YELLOW Urine Clarity CLEAR Urine pH 6.5 Ur Specific [place] <=1.005 Urine Protein NEGATIVE Urine Glucose (UA) NEGATIVE Urine Ketones NEGATIVE Urine Occult Blood NEGATIVE Urine Nitrite NEGATIVE Urine Bilirubin NEGATIVE Urine Urobilinogen 0.2 (NORMAL) Ur Leukocyte Esterase NEGATIVE Ur Microscopic Review NOT INDICATED Urine Culture Comments NOT INDICATED Urine HCG, Qual NEGATIVE Urine Opiates Screen NEGATIVE Ur Oxycodone Screen NEGATIVE Urine Methadone Screen NEGATIVE Ur Propoxyphene Screen NEGATIVE Ur Barbiturates Screen NEGATIVE Ur Tricyclics Screen POSITIVE H Ur Phencyclidine Scrn NEGATIVE Ur Amphetamine Screen NEGATIVE U Methamphetamines Scrn NEGATIVE U Benzodiazepines Scrn NEGATIVE Urine Cocaine Screen NEGATIVE U Cannabinoids Screen NEGATIVE PD Medical Decision Making - ED course ED course: Independent history was taken from the . He did voice a concern about a relapse onto a previous addiction of Ambien. Patient says she has not had any for several months. He corroborates the history from EMS. She collapsed from a chair onto the ground. There was some shaking but no postictal period. 37-year-old woman presents after syncopal episode. She has a history of gastric bypass and anemia. She is also been drinking energy drinks potentially dehydrating her. There was a headache associated with it but she declined a head CT. Toradol was unhelpful for her headache but after the administration of subcutaneous Imitrex her headache was completely gone. She also felt much better after the IV fluids. Work-up in the emergency department demonstrates mild anemia but certainly nothing that would require specific intervention and mild nonspecific leukocytosis. Basically normal BMP, urine and toxicology screening was positive for tricyclic's, but I believe her usual psychiatric medications would cause this to be positive on a screen. Departure - Departure Disposition: 01 Home, Self Care Clinical Impression: Dehydration Syncope Qualifiers: Syncope type: unspecified Qualified Code(s): R55 - Syncope and collapse Headache Qualifiers: Headache type: unspecified Headache chronicity pattern: acute headache Intractability: not intractable Qualified Code(s): R51.9 - Headache, unspecified Condition: Good Instructions: ED Dehydration, ED Fainting Unkn Cause Comments: Drink plenty of noncaffeinated fluids. Return for new or worsening symptoms. Follow-up with your primary care physician, next available appointment.
--- OUTSIDE RECORDS SUMMARY | 2023-04-21 20:05 | EXTERNAL MEDICAL SUMMARY RPT | Continuity of Care Document ---
Author Name Unknown Address [address] [place] [address] Phone Organization [facility] Address [address] [place] [address] Phone Care Team Providers Care [place] Name Role Phone Annel Hernandez Unavailable Unavailable Medications date description facility 2023-01-28 00:00 [facility] Social History date description facility 2023-01-28 00:00 Never smoked tobacco ([facility]
[2023-04-21] MEDS ORDERED: SODIUM CHLORIDE 0.9% 1,000 ML IV STA (20:30)
[2023-04-21] MEDS ORDERED: LACTATED RINGERS 1,000 ML IV STA (20:30)
[2023-04-21] MEDS ORDERED: KETOROLAC 15 MG/ML VIAL IVP STA (20:30)
[2023-04-21 20:43] LABS: BASOPHILS # (AUTO) 0.1 10^3/uL (0.0-0.1); BASOPHILS % (AUTO) 0.6 %; EOSINOPHILS # (AUTO) 0.1 10^3/uL (0.0-0.7); EOSINOPHILS % (AUTO) 1.1 %; HCT - HEMATOCRIT 35.8 % (37.0-47.0); HGB - HEMOGLOBIN 11.2 g/dL (12.0-16.0); LYMPHOCYTES # (AUTO) 2.6 10^3/uL (1.5-3.5); LYMPHOCYTES % (AUTO) 23.5 %; MEAN CORPUSCULAR HGB CONC 31.3 g/dL (32.0-36.0); MEAN CORPUSCULAR VOLUME 79.9 fL (81.0-99.0); MEAN PLATELET VOLUME 11.1 fL (7.9-10.8); MONOCYTES # (AUTO) 0.8 10^3/uL (0.0-1.0); MONOCYTES % (AUTO) 6.9 %; NEUTROPHILS # (AUTO) 7.5 10^3/uL (1.5-6.6); NEUTROPHILS % (AUTO) 67.6 %; PLT - PLATELET COUNT 281 10^3/uL (130-450); RED BLOOD COUNT 4.48 10^6/uL (4.20-5.40); RED CELL DISTRIBUTION WIDTH 14.2 % (12.0-15.0); WHITE BLOOD COUNT 11.1 x10^3/uL (4.8-10.8)
[2023-04-21 20:52] LABS: CALCIUM 8.4 mg/dL (8.5-10.3)
[2023-04-21] MEDS ORDERED: SUMAtriptan 6 MG/0.5 ML VIAL SUBQ STA (21:22)
[2023-04-21 21:53] LABS: MUDS CUTOFF CONCENTRATIONS CUTOFF CONC BELOW:
[2023-04-21 21:55] LABS: BILIRUBIN,URINE NEGATIVE (NEGATIVE); GLUCOSE, URINE (UA) NEGATIVE (NEGATIVE); KETONES,URINE (UA) NEGATIVE (NEGATIVE); LEUKOCYTE ESTERASE, URINE NEGATIVE (NEGATIVE); NITRITE,URINE NEGATIVE (NEGATIVE); OCCULT BLOOD,URINE NEGATIVE (NEGATIVE); PH,URINE 6.5 PH (5.0-7.5); PROTEIN,URINE NEGATIVE (NEGATIVE); UROBILINOGEN,URINE 0.2 (NORMAL) E.U./dL (NORMAL)
[2023-04-21 21:56] LABS: CLARITY,URINE CLEAR (CLEAR); HCG UR QUAL NEGATIVE
[2023-04-21 22:04] LABS: AMPHETAMINE SCREEN,URINE NEGATIVE (NEGATIVE); BARBITURATE SCREEN,UR NEGATIVE (NEGATIVE); BENZODIAZEPINES SCREEN, URINE NEGATIVE (NEGATIVE); COCAINE SCREEN URINE NEGATIVE (NEGATIVE); METHADONE SCREEN, URINE NEGATIVE (NEGATIVE); METHAMPHETAMINES SCREEN, URINE NEGATIVE (NEGATIVE); OPIATE SCREEN, URINE NEGATIVE (NEGATIVE); OXYCODONE SCREEN, URINE NEGATIVE (NEGATIVE); PROPOXYPHENE SCREEN, URINE NEGATIVE (NEGATIVE); THC CANNABINOID SCREEN, URINE NEGATIVE (NEGATIVE); TRICYCLIC ANTIDEPRESSANT,URINE POSITIVE (NEGATIVE)
[2023-04-21 22:41] VITALS: BP 134/70
== END 2023-04-21 22:39 | disposition home or self-care (01) ==
LOC: ED 19:41
DX: E86.0 Dehydration (principal); R51.9 Headache, unspecified; R55 Syncope and collapse
CPT/HCPCS: 36415; 80048; 80306; 81003; 81025; 85025; 93005; 96372; 96374; 99284; J7120; 81001; 87086

== ENCOUNTER 2023-06-22 11:36 | Outpatient (CLI) | payer OTHER ==
[2023-06-22 18:07] LABS: BASOPHILS # (AUTO) 0.1 10^3/uL (0.0-0.1); BASOPHILS % (AUTO) 0.8 %; EOSINOPHILS # (AUTO) 0.1 10^3/uL (0.0-0.7); EOSINOPHILS % (AUTO) 1.3 %; HCT - HEMATOCRIT 41.5 % (37.0-47.0); HGB - HEMOGLOBIN 12.7 g/dL (12.0-16.0); LYMPHOCYTES % (AUTO) 31.3 %; MEAN CORPUSCULAR HEMOGLOBIN 25.3 pg (27.0-31.0); MEAN CORPUSCULAR HGB CONC 30.6 g/dL (32.0-36.0); MEAN CORPUSCULAR VOLUME 82.7 fL (81.0-99.0); MEAN PLATELET VOLUME 11.7 fL (7.9-10.8); MONOCYTES # (AUTO) 0.6 10^3/uL (0.0-1.0); MONOCYTES % (AUTO) 6.8 %; NEUTROPHILS # (AUTO) 5.6 10^3/uL (1.5-6.6); NEUTROPHILS % (AUTO) 59.5 %; PLT - PLATELET COUNT 323 10^3/uL (130-450); RED BLOOD COUNT 5.02 10^6/uL (4.20-5.40); RED CELL DISTRIBUTION WIDTH 15.9 % (12.0-15.0); WHITE BLOOD COUNT 9.5 x10^3/uL (4.8-10.8)
[2023-06-22 18:19] LABS: ALBUMIN 4.1 g/dL (3.2-5.5); ALBUMIN/GLOBULIN RATIO 1.6 (1.0-2.2); BILIRUBIN,TOTAL 0.3 mg/dL (0.2-1.0); CALCIUM 9.3 mg/dL (8.5-10.3); CREATININE 0.7 mg/dL (0.6-1.3); TOTAL PROTEIN 6.7 g/dL (6.4-8.9)
[2023-06-22 18:52] LABS: THYROID STIMULATING HORMONE 2.99 uIU/mL (0.34-5.60)
[2023-06-22 18:59] LABS: FERRITIN 4.5 ng/mL (11.0-306.8)
== END 2023-06-22 11:37 | disposition home or self-care (01) ==
LOC: LAB.N 11:36
PROVIDERS: ATTEND Physician Assistant Medical
DX: R00.2 Palpitations (principal); Z98.84 Bariatric surgery status
CPT/HCPCS: 36415; 80053; 82306; 82607; 82728; 82746; 83540; 84443; 84466; 85025